=== PATIENT | female | born 1985 | race Caucasian/White ===

== ENCOUNTER 2018-07-22 17:10 | Inpatient (IN) | payer MEDICAID ==
[2018-07-22 17:44] LABS: ADD UMIC YES; UR ASCORBIC ACID NEGATIVE (NEGATIVE); UR BACTERIA FEW /HPF (NONE SEEN); UR BILIRUBIN (Dip) NEGATIVE (NEGATIVE); UR BLOOD (Dip) 1+ mg/dL (NEGATIVE); UR CLARITY CLEAR (CLEAR); UR COLOR STRAW (YELLOW); UR GLUCOSE (Dip) NEGATIVE (NEGATIVE); UR KETONES (Dip) NEGATIVE (NEGATIVE); UR LEUKOCYTE ESTERASE (Dip) NEGATIVE Leu/ul (NEGATIVE); UR NITRITE (Dip) NEGATIVE (NEGATIVE); UR RBC 1 /HPF (0-5); UR SPECIFIC GRAVITY (Dip) 1.005 (1.003-1.030); UR TOTAL PROTEIN (Dip) NEGATIVE (NEGATIVE); UR UROBILINOGEN (Dip) NEGATIVE (NEGATIVE); UR WBC 1 /HPF (0-5)
[2018-07-22] MEDS ORDERED: MAGNESIUM SULFATE 20 GM/500 ML 500 ML IV (20:52)
[2018-07-22] MEDS ORDERED: MAGNESIUM SULFATE 4 GM/100 ML 100 ML (20:52)
[2018-07-22] MEDS ORDERED: AL HYDROX/MG HYDROX/SIMETH 30 ML CUP PO (21:00)
[2018-07-22] MEDS ORDERED: ACETAMINOPHEN 325 MG TAB PO (21:00)
[2018-07-22] MEDS ORDERED: BETAMET NA PHOS/AC(6 MG/ML) 5ML INJ IM (21:00)
[2018-07-22] MEDS ORDERED: AMPICILLIN 2 GM/NS (PMX) 100 ML (21:05)
[2018-07-22] MEDS: LACTATED RINGER'S 1,000 ML IV (21:07)
[2018-07-22] MEDS: MAGNESIUM SULFATE 4 GM/100 ML 100 ML IV (21:12)
[2018-07-22] MEDS: AMPICILLIN 2 GM/NS (PMX) 100 ML IV (21:15)
[2018-07-22 21:33] LABS: ADD MAN DIFF? NO
[2018-07-22 21:35] LABS: WHITE BLOOD COUNT 16.2 10^3/ul (4.8-10.8)
[2018-07-22 21:35] LABS: BASOPHIL # 0.1 10^3/ul (0.0-0.1); BASOPHILS % 0.4 % (0.0-2.0); EOSINOPHILS # 0.1 10^3/ul (0.0-0.5); EOSINOPHILS % 0.4 % (0.0-7.0); HEMATOCRIT 43.9 % (37.0-47.0); HEMOGLOBIN 14.8 g/dl (12.0-16.0); LYMPHOCYTES # 1.8 10^3/ul (0.8-2.9); LYMPHOCYTES % 10.9 % (15.0-51.0); MEAN CORPUSCULAR HEMOGLOBIN 29.9 pg (29.0-33.0); MEAN CORPUSCULAR HGB CONC 33.7 g/dl (32.0-37.0); MEAN CORPUSCULAR VOLUME 88.7 fl (82.0-101.0); MEAN PLATELET VOLUME 12.5 fl (7.4-10.4); MONOCYTE # 0.9 10^3/ul (0.3-0.9); MONOCYTES % 5.5 % (0.0-11.0); NEUTROPHIL # 13.2 10^3/ul (1.6-7.5); NEUTROPHILS % 81.7 % (39.0-77.0); PLATELET COUNT 188 10^3/UL (140-415); RED BLOOD COUNT 4.95 10^6/ul (4.20-5.40); RED CELL DISTRIBUTION WIDTH 13.5 % (11.5-14.5)
[2018-07-22] MEDS: MAGNESIUM SULFATE 20 GM/500 ML 500 ML IV (21:41)
[2018-07-22] MEDS: BETAMET NA PHOS/AC(6 MG/ML) 5ML INJ IM (21:53)
[2018-07-22 21:54] LABS: INR 0.82; PROTIME 11.3 Sec (11.9-14.9); PT RATIO 0.9
[2018-07-22 21:55] LABS: PARTIAL THROMBOPLASTIN TIME 24.5 Sec (23.0-35.0)
[2018-07-22] MEDS: FENTAnyl 50 MCG/ML VIAL IV (23:24)
[2018-07-23 00:06] LABS: ADD UMIC YES; UR ASCORBIC ACID NEGATIVE (NEGATIVE); UR BILIRUBIN (Dip) NEGATIVE (NEGATIVE); UR BLOOD (Dip) NEGATIVE (NEGATIVE); UR CLARITY SLIGHTLY CLOUDY (CLEAR); UR COLOR YELLOW (YELLOW); UR GLUCOSE (Dip) NEGATIVE (NEGATIVE); UR KETONES (Dip) 2+ mg/dL (NEGATIVE); UR LEUKOCYTE ESTERASE (Dip) NEGATIVE Leu/ul (NEGATIVE); UR MUCUS FEW /HPF (NONE SEEN); UR NITRITE (Dip) NEGATIVE (NEGATIVE); UR RBC 3 /HPF (0-5); UR TOTAL PROTEIN (Dip) 1+ mg/dl (NEGATIVE); UR UROBILINOGEN (Dip) NEGATIVE (NEGATIVE); UR WBC 1 /HPF (0-5)
[2018-07-23] MEDS ORDERED: TERBUTALINE 1 ML (00:45)
[2018-07-23] MEDS: TERBUTALINE 1 MG/ML INJ SC ×2 (00:50→02:35)
[2018-07-23] MEDS ORDERED: METHYLERGONOVINE 0.2 MG INJ IM (01:00)
[2018-07-23] MEDS ORDERED: OXYTOCIN 30 UNITS/LR 500 ML IV ×2 (01:00→05:30)
[2018-07-23] MEDS ORDERED: MISOPROSTOL 200 MCG TAB PR (01:00)
[2018-07-23] MEDS ORDERED: CARBOPROST 250 MCG INJ IM ×2 (01:00→05:30)
[2018-07-23] MEDS ORDERED: CEFAZOLIN 2 GM/50 ML (PMX) 50 ML IV (01:00)
[2018-07-23 01:01] LABS: MAGNESIUM 5.6 mg/dl (1.7-2.5)
[2018-07-23 01:10] LABS: ANION GAP 12 (5-13); BLOOD UREA NITROGEN 8 mg/dl (7-20); CALCIUM 7.5 mg/dl (8.4-10.2); CARBON DIOXIDE 17 mmol/L (21-31); CHLORIDE 104 mmol/L (97-110); CREATININE 0.33 mg/dl (0.44-1.00); Estimated GFR > 60 mL/min (>60); GLUCOSE 138 mg/dl (70-220); POTASSIUM 3.2 mmol/L (3.5-5.1); SODIUM 133 mmol/L (135-144)
[2018-07-23] MEDS: AMPICILLIN 1 GM/NS (PMX) 50 ML IV (01:35)
[2018-07-23 01:41] LABS: HEPATITIS B SURFACE ANTIGEN NEGATIVE (NEGATIVE)
[2018-07-23 01:51] LABS: HIV 1&2 ANTIBODY NEGATIVE (NEGATIVE)
[2018-07-23] MEDS: POTASSIUM CHLORIDE 100 ML IVPB (02:32)
[2018-07-23] MEDS ORDERED: morphine SULFATE/PF (10 MG/10 ML) INJ (03:00)
[2018-07-23] MEDS ORDERED: PHENYLephrine (100 MCG/ML) 5ML SYG (03:23)
[2018-07-23] MEDS ORDERED: ONDANSETRON 4 MG INJ (03:23)
[2018-07-23] MEDS ORDERED: DEXAMETHASONE 4 MG/ML 1 ML INJ (03:23)
[2018-07-23] MEDS ORDERED: ONDANSETRON 4 MG INJ IV (03:30)
[2018-07-23] MEDS ORDERED: ZOLPIDEM 5 MG TAB PO (03:30)
[2018-07-23] MEDS ORDERED: NALOXONE (0.4 MG/ML) INJ IV (03:30)
[2018-07-23] MEDS ORDERED: HYDROmorphONE 0.5 MG/0.5 ML SYG IV ×2 (03:30)
[2018-07-23] MEDS: MISOPROSTOL 200 MCG TAB PR (04:15)
[2018-07-23] MEDS: DIPHENHYDRAMINE 50 MG INJ IV (04:42)
[2018-07-23] MEDS: OXYTOCIN 30 UNITS/LR 500 ML IV ×2 (04:49→05:02)
[2018-07-23] MEDS: LACTATED RINGER'S 500 ML IV ×2 (05:02→11:36)
[2018-07-23] MEDS: LACTATED RINGER'S 1,000 ML IV ×3 (06:07→18:34)
[2018-07-23] MEDS: KETOROLAC 30 MG INJ IV ×3 (06:34→18:34)
[2018-07-23 06:43] LABS: ADD MAN DIFF? NO
[2018-07-23 06:49] LABS: WHITE BLOOD COUNT 19.4 10^3/ul (4.8-10.8)
[2018-07-23 06:49] LABS: BASOPHIL # 0.1 10^3/ul (0.0-0.1); BASOPHILS % 0.3 % (0.0-2.0); EOSINOPHILS % 0.1 % (0.0-7.0); HEMATOCRIT 34.7 % (37.0-47.0); HEMOGLOBIN 11.7 g/dl (12.0-16.0); LYMPHOCYTES # 0.9 10^3/ul (0.8-2.9); LYMPHOCYTES % 4.7 % (15.0-51.0); MEAN CORPUSCULAR HEMOGLOBIN 30.5 pg (29.0-33.0); MEAN CORPUSCULAR HGB CONC 33.7 g/dl (32.0-37.0); MEAN CORPUSCULAR VOLUME 90.4 fl (82.0-101.0); MEAN PLATELET VOLUME 12.5 fl (7.4-10.4); MONOCYTE # 0.6 10^3/ul (0.3-0.9); MONOCYTES % 3.3 % (0.0-11.0); NEUTROPHIL # 17.5 10^3/ul (1.6-7.5); PLATELET COUNT 171 10^3/UL (140-415); RED BLOOD COUNT 3.84 10^6/ul (4.20-5.40); RED CELL DISTRIBUTION WIDTH 13.5 % (11.5-14.5)
[2018-07-23] MEDS ORDERED: OXYTOCIN 30 UNITS/LR 500 ML BAG IV (07:00)
[2018-07-23] MEDS ORDERED: BETAMET NA PHOS/AC(6 MG/ML) 5ML INJ IM (09:30)
[2018-07-23 21:51] LABS: RAPID PLASMA REAGIN NONREACTIVE (NR)
[2018-07-24] MEDS: KETOROLAC 30 MG INJ IV (00:46)
[2018-07-24] MEDS ORDERED: HYDROCODONE/APAP (5/325) TAB PO (03:12)
[2018-07-24] MEDS: IBUPROFEN 600 MG TAB PO ×4 (05:47→23:45)
[2018-07-24] MEDS: LACTATED RINGER'S 1,000 ML IV (05:51)
[2018-07-24] MEDS: LANOLIN 7 GM TUBE TOP (12:02)
[2018-07-24 12:12] LABS: RUBELLA ANTIBODY - IGG 3.25 index
[2018-07-24 13:42] LABS: RUBELLA ANTIBODY - IGM <20.00 AU/mL
[2018-07-25] MEDS: IBUPROFEN 600 MG TAB PO ×4 (06:03→23:30)
[2018-07-25 13:01] LABS: ADD MAN DIFF? NO
[2018-07-25 13:08] LABS: BASOPHIL # 0.1 10^3/ul (0.0-0.1); BASOPHILS % 0.3 % (0.0-2.0); EOSINOPHILS # 0.1 10^3/ul (0.0-0.5); EOSINOPHILS % 0.6 % (0.0-7.0); HEMATOCRIT 33.8 % (37.0-47.0); LYMPHOCYTES # 2.4 10^3/ul (0.8-2.9); LYMPHOCYTES % 16.3 % (15.0-51.0); MEAN CORPUSCULAR HEMOGLOBIN 30.1 pg (29.0-33.0); MEAN CORPUSCULAR HGB CONC 32.5 g/dl (32.0-37.0); MEAN CORPUSCULAR VOLUME 92.6 fl (82.0-101.0); MEAN PLATELET VOLUME 12.2 fl (7.4-10.4); MONOCYTE # 0.9 10^3/ul (0.3-0.9); MONOCYTES % 6.3 % (0.0-11.0); NEUTROPHIL # 10.9 10^3/ul (1.6-7.5); NEUTROPHILS % 75.4 % (39.0-77.0); PLATELET COUNT 209 10^3/UL (140-415); RED BLOOD COUNT 3.65 10^6/ul (4.20-5.40); RED CELL DISTRIBUTION WIDTH 14.2 % (11.5-14.5)
[2018-07-25 13:08] LABS: WHITE BLOOD COUNT 14.5 10^3/ul (4.8-10.8)
[2018-07-26] MEDS: IBUPROFEN 600 MG TAB PO ×2 (05:23→12:07)
[2018-07-26] MEDS ORDERED: DIPHTH/TET/ACEL PERTUSS (ADULT) 0.5 ML VIAL IM* (09:00)
[2018-07-26] MEDS ORDERED: MEASLES,MUMPS,RUBELLA VACCINE INJ SC* (09:00)
== END 2018-07-26 16:29 | disposition home or self-care (01) | DRG 786 ==
LOC: OBT 17:10 → L-D 17:10 → OBT 20:30 → L-D 07-23 04:39 → PP1 07-23 08:24 → L-D 21:44
PROC: 10D00Z1 Extraction of Products of Conception, Low, Open Approach (ICD-10-PCS; principal; 2018-07-23)
DX: O60.14X0 Preterm labor third trimester with preterm delivery third trimester, not applicable or unspecified (principal); O45.8X3 Other premature separation of placenta, third trimester; Z68.42 Body mass index [BMI] 45.0-49.9, adult; O26.873 Cervical shortening, third trimester; O34.219 Maternal care for unspecified type scar from previous cesarean delivery; Z3A.33 33 weeks gestation of pregnancy; Z87.51 Personal history of pre-term labor; Z37.0 Single live birth; O99.214 Obesity complicating childbirth; O32.1XX0 Maternal care for breech presentation, not applicable or unspecified; O62.4 Hypertonic, incoordinate, and prolonged uterine contractions
CPT/HCPCS: 76815; 76817; 76818; 80048; 81001; 83735; 85025; 85610; 85730; 86592; 86703; 86762; 86850; 86900; 86901; 86920; 87081; 87340; 88302; 88307; 99464